=== PATIENT | female | born 1955 | race Caucasian/White ===

== ENCOUNTER → 2024-10-29 | Outpatient (CLI) | payer MEDICARE ==
--- NOTE | 2024-10-29 21:39 | RADIOLOGY REPORT ---
Procedure: MR MRI LOWER EXTREMITY LEFT 10/29/2024 02:03 PM Indication: LOW BACK PAIN, UNSPECIFIED/ PAIN IN LEFT HIP COMPARISON: None TECHNIQUE: MRI of the left hip was performed utilizing multiple appropriate imaging planes and pulse sequences. FINDINGS: Hip Joint: Unremarkable. Acetabular Labrum: Grossly unremarkable in this nonarthrographic examination. Hamstring tendons: Unremarkable. Quadriceps tendons: Unremarkable. Gluteal tendons: Unremarkable. Iliopsoas tendons: Unremarkable. Sciatic nerve: Unremarkable. Bone marrow: Unremarkable. Sacroiliac joint: Unremarkable. Other: Heterogeneous uterine parenchyma suggestive of uterine leiomyomas. IMPRESSION: 1. Unremarkable examination of the left hip.
--- NOTE | 2024-10-30 11:00 | RADIOLOGY REPORT ---
PROCEDURE: MR MRI LUMBAR SPINE INDICATION: LOW BACK PAIN, UNSPECIFIED/ PAIN IN LEFT HIP Exam Date: 10/29/2024 02:36 PM COMPARISON: None TECHNIQUE: MRI lumbar spine without intravenous contrast. FINDINGS: Grade 1 anterolisthesis of L3 on L4 and L4 on L5. There are degenerative endplate changes including modic endplate changes with anterior and lateral osteophytes throughout the lumbar spine. The visual ized distal spinal cord and conus medullaris are within normal limits. The conus medullaris appears to terminate within normal limits. The visualized retroperitoneal and paraspinal soft tissues are un remarkable. The following axial levels are detailed below: T12-L1: There is a mild circumferential disc bulge. No significant central canal or neuroforaminal s tenosis. L1-L2: There is a mild circumferential disc bulge. No significant central canal or neuroforaminal s tenosis. L2-L3: There is a moderate circumferential disc bulge complicated by facet arthropathy associated w ith mild to moderate bilateral neuroforaminal stenosis. No significant central canal stenosis. L3-L4: There is a moderate circumferential disc bulge complicated by facet arthropathy associated w ith mild to moderate bilateral neuroforaminal stenosis right greater than left. Central canal measure s 8 mm. L4-L5: There is a severe circumferential disc bulge complicated by facet arthropathy narrowing the central canal to 6 mm with associated moderate to severe bilateral neuroforaminal stenosis left great er than right. L5-S1: There is a mild circumferential disc bulge. No significant central canal or neuroforaminal st enosis. IMPRESSION: 1. Multilevel degenerative disease. Grade 1 anterolisthesis L3 on L4 and L4 on L5. Severe central ca nal stenosis L4-5. Moderate central canal stenosis L3-4. Neural foraminal stenosis as above. HS:Y
== END | disposition home or self-care (01) ==
LOC: MRI 13:45
PROVIDERS: ATTEND Nurse Practitioner Adult Health
DX: M51.17 Intervertebral disc disorders with radiculopathy, lumbosacral region (principal); M54.50 Low back pain, unspecified; M25.552 Pain in left hip; M43.16 Spondylolisthesis, lumbar region; M48.061 Spinal stenosis, lumbar region without neurogenic claudication
CPT/HCPCS: 72148; 73721

== ENCOUNTER 2025-01-07 10:36 | Outpatient (CLI) | payer MEDICARE ==
[~2025-01-07 10:36] MED LIST: iohexol 300mg/ml 100ml inj. ONE
--- NOTE | 2025-01-07 12:39 | RADIOLOGY REPORT ---
Exam: CT CT ABDOMEN PELVIS W/WO IV CONTRAST History: RIGHT FLANK PAIN Comparison Study: None Technique: Multidetector spiral CT of the abdomen and pelvis was performed from lung bases to pubic s ymphysis. Initial imaging was done without IV contrast, followed by post contrast images of the abdo men and pelvis. Intravenous contrast was administered during this examination. Portal venous imaging was obtained. Axial, coronal and sagittal multiplanar reformats were performed by the technologist o n a separate workstation. CONTRAST: Type of contrast: Omni 300 Contrast injected: 100 ml Radiation Dose : CT Dose: CTDI volume is 13 mGy. Dose-length product is 1305 mGy*cm Findings: Lung Bases: No acute or significant lung base finding. Normal heart size. No pleural or pericardial effusion. Liver: Likely hemangioma in the right lobe of the liver measuring up to 18 mm. Gallbladder and biliary Tree: Unremarkable Spleen: Unremarkable Pancreas: The pancreas is normal in appearance without focal lesions or abnormal enhancement. Adrenal Glands: Unremarkable Kidneys: Kidneys demonstrate normal symmetric enhancement without focal lesions, calculi or hydroneph rosis. Bladder: Grossly unremarkable for degree of distention. Bowel: The stomach is grossly normal in appearance. Small bowel and colon are normal in caliber and d istribution. Normal appendix is visualized in the right lower quadrant without findings of appendici tis. Ascites: Trace free fluid in the pelvis could be physiologic. Lymphadenopathy: No mesenteric, retroperitoneal or periportal lymphadenopathy. Abdominal wall and Mesentery: Unremarkable. Vasculature: The visualized abdominal aorta is normal in size and caliber. There is calcified atheros clerotic plaque involving the aorta and its branches. Abdominal and pelvic vessels demonstrate normal enhancement. Pelvic Organs: Heterogeneous uterus with fibroids. Musculoskeletal: Levoscoliosis with associated multilevel degenerative disease. Grade 1 anterolisthes is of L4 on L5. IMPRESSION: 1. No acute abdominal or pelvic finding. Likely hemangioma in the liver. This could be further evalua connie with MRI of the abdomen with contrast. Fibroids in the uterus. Trace free fluid in the pelvis. Radiation optimization: All CT scans at this facility use at least one of these dose optimization cornelius hniques: Automated exposure control mA and/or kV adjustment per patient size (includes targeted exams where dose is matched to clinical indication) or iterative reconstruction. HS:Y
== END 2025-01-07 23:59 | disposition home or self-care (01) ==
LOC: RAD 10:36
PROVIDERS: ATTEND Nurse Practitioner Family
DX: D25.9 Leiomyoma of uterus, unspecified (principal); R10.9 Unspecified abdominal pain; I70.0 Atherosclerosis of aorta; M51.369 Other intervertebral disc degeneration, lumbar region without mention of lumbar back pain or lower extremity pain; M41.86 Other forms of scoliosis, lumbar region; M43.16 Spondylolisthesis, lumbar region
CPT/HCPCS: 74178; Q9967